=== PATIENT | female | born 1985 | race Two or more races ===

== ENCOUNTER 2016-03-26 11:11 | Emergency (ER) | payer OTHER ==
[2016-03-26] MEDS ORDERED: LIDOCAINE VISCOUS 2% 15 ML UDC MM STA (12:21)
[2016-03-26] MEDS ORDERED: MAG HYDROX/AL HYDROX/SIMETH 30 ML UDC PO STA (12:21)
[2016-03-26] MEDS ORDERED: MAG HYDROX/AL HYDROX/SIMETH 30 ML UDC ONE (12:26)
[2016-03-26] MEDS ORDERED: LIDOCAINE VISCOUS 2% 15 ML UDC MM ONE (12:26)
== END 2016-03-26 14:57 | disposition home or self-care (01) ==
DX: K29.50 Unspecified chronic gastritis without bleeding (principal)
CPT/HCPCS: 36415; 76700; 80053; 81003; 81025; 83690; 85025; 87339; 99283; 99284; A9270

== ENCOUNTER 2016-04-06 11:10 | Outpatient (CLI) | payer OTHER | END 2016-04-06 11:11 | disposition home or self-care (01) | DX: R53.83 Other fatigue (principal) ==